=== PATIENT | female | born 1955 | race Caucasian/White ===

== ENCOUNTER 2016-08-02 09:00 | Inpatient (IN) | payer BC ==
[~2016-08-02] VITALS: Ht 165.1 cm; Wt 83.1 kg
--- NOTE | ~2016-08-02 | OR ---
PATIENT'S NAME: OLU HAWK [facility] AGE: 61 Y [address] ROOM: [place] [address] LOCATION: [facility] ADMIT DATE: 08/12/2016 OR/Procedure Report DISCHARGE DATE: FAMILY PHYSICIAN: KATHYA TOMAS MD ATTENDING PHYSICIAN: AFTAB BUTLER SURGEON: Aftab Butler MD CUSTOMS GUARD: 1. TRISTIN Cleary. 2. Leonid Garcia CST/TEXTILE KNITTER. DATE OF PROCEDURE: 08/12/2016 PREOPERATIVE DIAGNOSIS: Left knee degenerative joint disease (primarily affecting the lateral compartment). POSTOPERATIVE DIAGNOSIS: Left knee degenerative joint disease (primarily affecting the lateral compartment). PROCEDURE PERFORMED: Left knee lateral compartment unicompartmental arthroplasty with Marana Alexys robotic arm guidance and computer navigation. ANESTHESIA: Spinal plus adductor canal block plus periarticular local anesthesia (ropivacaine with epinephrine and Toradol). DRAINS: None. SPECIMENS: None. COMPLICATIONS: None. TOURNIQUET TIME: Less than 2 hours. ESTIMATED BLOOD LOSS: Less than 10 mL. IMPLANTS: Kam Alexys RESTORIS size 4 left lateral femoral component. Kam Alexys RESTORIS left size 3 tibial component. Size 3, 8 mm X3 tibial polyethylene insert. INDICATION FOR PROCEDURE: Ms. Hawk is a 61-year-old female, presenting with advanced degenerative joint disease localized to the lateral compartment of her left knee. She has decided to proceed with unicompartmental arthroplasty after having been thoroughly counseled regarding risks, benefits, limitations, and alternatives. She has been experiencing progressively severe symptoms over the last several months. She underwent an unsuccessful arthroscopy and symptoms have progressed since then. She was found to have significant lateral compartment degenerative changes at the time of her arthroscopy. She has failed to respond satisfactorily to nonoperative modalities. She has been PATIENT'S NAME: OLU HAWK [facility] AGE: 61 Y [address] ROOM: [place] [address] LOCATION: [facility] ADMIT DATE: 08/12/2016 OR/Procedure Report DISCHARGE DATE: FAMILY PHYSICIAN: KATHYA TMOAS MD ATTENDING PHYSICIAN: AFTAB BUTLER thoroughly counseled regarding risks, benefits, limitations, and alternatives to surgery. Her is an orthopedic surgeon and is in favor of her proceeding as well. She has given informed consent to receive a total knee arthroplasty (if intraoperative circumstances dictate that this would be preferable). We have specifically reviewed risks and implications of infection, deep venous thrombosis, pulmonary embolism, mortality, wear, loosening, blood transfusion risks, and potential need for revision and potential need for conversion to total knee arthroplasty. Informed consent granted. DESCRIPTION OF PROCEDURE: The patient positioned supine after administration of regional anesthesia and prophylactic antibiotics. A well-padded pneumatic tourniquet was placed around her left proximal thigh. Her left lower extremity was prepped and draped with vigilant sterile technique. Examination under anesthesia demonstrated no active skin lesions or masses. There was a large effusion. There was no erythema. There was no abnormal warmth. Range of motion was from full extension to 140 degrees of flexion. There was no ligamentous insufficiency. The left lower extremity was elevated and exsanguinated with an Esmarch wrap and the pneumatic tourniquet was inflated to 300 mmHg. Bicortical threaded Steinmann pins were placed percutaneously at the proximal tibia and distal femur from anterior to posterior using soft tissue protection sleeves. The femoral and tibial tracker arrays were fastened to the Steinmann pins. A longitudinal midline incision was utilized to approach the knee (in order to facilitate potential future need to convert to a total knee arthroplasty). A bridged lateral parapatellar arthrotomy was performed from the superior pole of the patella to the lateral margin of the patellar tendon insertion. There was a large effusion consisting of benign-appearing translucent synovial fluid. There were full thickness fragments of articular cartilage, delaminating off the anterior aspect of the full-thickness articular cartilage lesion at the lateral femoral condyle. The cruciate ligaments were intact. The articular cartilage at the visible portions of the patella and medial femoral condyle were normal. There were superficial softening and mild superficial deterioration of the articular cartilage at a 3 cm diameter region of the femoral trochlea, but there were no high-grade partial thickness defects at the trochlea. There was a very small osteophyte at the lateral margin of the femoral condyle. There was no significant active synovitis. There was full-thickness loss of articular cartilage involving the majority of the posterior 2/3rd of the lateral femoral condyle and the majority of the lateral tibial plateau. The distal femoral and proximal tibial check points were inserted and osseous PATIENT'S NAME: OLU HAWK [facility] AGE: 61 Y [address] ROOM: [address] [address] LOCATION: [facility] ADMIT DATE: 08/12/2016 OR/Procedure Report DISCHARGE DATE: FAMILY PHYSICIAN: KATHYA TOMAS MD ATTENDING PHYSICIAN: AFTAB BUTLER landmarks were obtained in order to calibrate the computer navigation system. The computer navigation system was registered. The [employer] robotic system was utilized to prepare the distal femoral and proximal tibial surfaces according to the preoperative CT scan-based template. Care was taken to maximize tibial coverage and to appropriately internally rotate the tibial component so as to accommodate the screw-home mechanism in terminal extension. Trial components were placed and there was excellent tracking throughout a full range of motion. Care was taken to not violate the ACL footprint. There was excellent stability throughout a full range of motion. The popliteus tendon was vigilantly protected. Degenerative remnants of the lateral meniscus had been excised. Care was taken to avoid overcorrection of the patient's preoperative valgus deformity. The knee was corrected to 1 degree of residual valgus alignment. All trial components were removed and all prepared osseous surfaces were thoroughly irrigated with bacteriostatic pulsatile saline lavage and dried prior to cementing both components in a single stage using Kam Simplex cement containing premixed tobramycin. All excess cement was removed. The cement was allowed to harden with a size #9 trial insert. After the cement had hardened, the final insert was placed with excellent visualization of the locking mechanism to confirm that it was secured. It should be noted that circumferential inspection of the tibial interface confirmed absence of residual extruded cement. It should be noted that the entire joint space was thoroughly irrigated with bacteriostatic pulsatile saline lavage multiple times throughout the case (including immediately prior to closure). Final range of motion was from full extension to 140 degrees of flexion. There was excellent patellar tracking. The periarticular injection was placed prior to cementing the components. The arthrotomy was closed with multiple simple interrupted #1 Vicryl sutures. Photographic documentation of intraoperative findings was obtained. Subcutaneous tissues were re-irrigated prior to reapproximation with simple, deep, interrupted 0 Vicryl sutures. The skin was closed with superficial buried interrupted 2-0 Vicryl sutures, followed by surgical jimmy. All 4 Steinmann pins were removed intact. The Steinmann pin orifices were thoroughly irrigated prior to closure with superficial buried interrupted 3-0 PATIENT'S NAME: OLU HAWK [facility] AGE: 61 Y [address] ROOM: [address] [address] LOCATION: [facility] ADMIT DATE: 08/12/2016 OR/Procedure Report DISCHARGE DATE: FAMILY PHYSICIAN: KATHYA TOMAS MD ATTENDING PHYSICIAN: AFTAB BUTLER Monocryl followed by Dermabond and Steri-Strips. The dressings consisted of Xeroform gauze followed by sterile gauze, ABD pads, and an Anthony wrap. There were no complications. MD LILIANA PINO/melissa /[id number] d: 08/12/[id number] t: 08/13/16 1006, OPERATIVE SUMMARY
[2016-08-02] MEDS ORDERED: CRESTOR10 MG PO (09:18)
[2016-08-02] MEDS ORDERED: ALDACTONE100 MG PO (09:18)
[2016-08-02] MEDS ORDERED: BUPROPION PO (09:18)
[2016-08-02] MEDS ORDERED: ASPIRIN LO-DOSE81 MG PO (09:19)
[2016-08-02] MEDS ORDERED: VITAMIN D-32000 UNI1 PO (09:19)
[2016-08-02] MEDS ORDERED: DESYREL100 MG PO (09:20)
[2016-08-02] MEDS ORDERED: PROTONIX40 MG PO (09:20)
[2016-08-02] MEDS ORDERED: MOBIC15 MG PO (09:20)
[2016-08-02] MEDS ORDERED: MYRBETRIQ50 MG PO (09:20)
[2016-08-02] MEDS ORDERED: EFFEXOR XR150 MG PO (09:21)
[2016-08-02] MEDS ORDERED: ADDERALL 20 MG20 MG PO (09:22)
--- NOTE | 2016-08-12 15:15 | NUR ---
Introduced self/role to patient and her Buck. They live in [place], [place]. They named off the DME they already had and didn't feel like they would need any additional ones. They had no concerns about going home.
--- NOTE | 2016-08-12 16:53 | NUR ---
Introduced self/role to patient. Denies questions. Reinforced importance of using IS and waving feet. Verbalizes understanding. Denies equipment needs or concerns. Plans to return home with help from family.
--- NOTE | 2016-08-12 19:23 | NUR ---
Significant Event: PATIENT UP TO FLOOR FROM PACU AT 1130. BHUPINDER DRESSING C/D/I TO L) KNEE. CSM ASSESSMENTS WNL. EZ WRAP TO L) KNEE. BILATERAL KNEE HIGH MARLENY HOSE AND FOOT PUMPS ON. INCENTIVE SPRIOMETER ENCOURAGED UP TO 2000. UP TO CHAIR AND BATHROOM WITH 1 ASSIST, USE OF WALKER/GAIT BELT. RATES L) KNEE PAIN 0-1 ON PAIN SCALE, PAIN WELL CONTROLLED WITH PRN DILAUDID 1 TAB GIVEN LAST AT 1430 AND TYLENOL EXTRA STRENGTH 2 TABS GIVEN AT 1755. TAKING FLUIDS WELL, GOOD APPETITE. AT BEDSIDE, VERY SUPPORTIVE. Follow up:
--- NOTE | 2016-08-13 04:11 | NUR ---
Significant Event: Dressing is clean, dry and intact. CSM WNL. Voids without difficulty. 1 assist with transfers. Dilaudid last at 0311. Has rated pain a 1/10 all shift. Room air. Follow up:
[2016-08-13 06:15] LABS: HEMATOCRIT 34.1 % (33.0-46.0); HEMOGLOBIN 11.1 g/dL (10.0-15.0)
[2016-08-13] MEDS ORDERED: TYLENOL EXTRA500 MG PO (11:56)
[2016-08-13] MEDS ORDERED: XARELTO10 MG PO (11:58)
[2016-08-13] MEDS ORDERED: DILAUDID 2MG(HYD2 MG PO (12:00)
--- NOTE | 2016-08-13 15:46 | NUR ---
Pt alert and oriented. She has rated pain at 1 all shift. States her knee mainly feels stiff. Pt has been up and about with standby assist to bathroom, grissom and has been up in recliner with legs elevated. Ice to knee all times. Dressing to knee dry and intact. Pt uses IS and does the bed exercises hrly. Pt CSM WNL. Pt ate all meals, Good fluid intake and voids well. Pt and spouse verbalize understanding of all discharge instruction. Sent with tubigrip, gauze and extra ice packs. Pt verbalizes understanding of home medication, dressing change tomorrow and shower tomorrow,activity, physician followup, pain medication use. Pt has all belongings. Pt discharged in stable condition with spouse to go home.
== END 2016-08-13 13:15 | disposition disaster alternative care site (69) | DRG 470 ==
LOC: EDSTATUS 09:00 → GPOC 09:00 → G3N 08-12 05:14
PROVIDERS: ADMIT Orthopaedic Surgery
PROC: 8E0Y0CZ Robotic Assisted Procedure of Lower Extremity, Open Approach (ICD-10-PCS; principal; 2016-08-12)
PROC: 8E0YXBG Computer Assisted Procedure of Lower Extremity, With Computerized Tomography (ICD-10-PCS; principal; 2016-08-12)
PROC: 0SRD0L9 Replacement of Left Knee Joint with Medial Unicondylar Synthetic Substitute, Cemented, Open Approach (ICD-10-PCS; principal; 2016-08-12)
DX: M17.12 Unilateral primary osteoarthritis, left knee (principal); E55.9 Vitamin D deficiency, unspecified; F41.9 Anxiety disorder, unspecified; E78.5 Hyperlipidemia, unspecified; M85.80 Other specified disorders of bone density and structure, unspecified site
CPT/HCPCS: C1713; C1776; J1100; J1885; J2001; J2250; J2405; J2795; J7120